=== PATIENT | male | born 1935 | race Caucasian/White ===

== ENCOUNTER 2018-01-28 08:50 | Inpatient (IN) | payer BC, OTHER ==
[2017-12-26 13:30] VITALS: BMI 45.0
--- NOTE | 2017-12-26 14:13 | PAT Medication Instructions ---
Service Date Dec 26, 2017. Current Home Medication List Aspirin (Aspirin), 325 MG PO DAILY PRN for Pain Carvedilol (Coreg), 3.125 MG PO DIRECTED Cyanocobalamin (Vitamin B-12), 1,000 MCG PO QAM Diclofenac Sodium (Actinic Ker (Solaraze) Furosemide (Lasix), 80 MG PO QAM Lidocaine (Lidocaine), 1 PATCH EX DAILY PRN for Pain Naproxen Sodium (Aleve), 2 TAB PO QD PRN for Pain Potassium Ext Rel (Klor-Con), 20 MEQ PO QAM Medication Instructions For Your Scheduled Surgery - Check with surgeon for instructions: Diclofenac Sodium (Actinic Ker (Solaraze) Diclofenac Sodium (Actinic Ker (Solaraze) Naproxen Sodium (Aleve), 2 TAB PO QD PRN for Pain - Check with surgeon and garbage stoker for instructions: Aspirin (Aspirin), 325 MG PO DAILY PRN for Pain - Continue as directed: Carvedilol (Coreg), 3.125 MG PO DIRECTED - Hold the following medications 24 hours prior to surgery: Lidocaine (Lidocaine), 1 PATCH EX DAILY PRN for Pain - Take the following medications the morning of surgery with a sip of water: Cyanocobalamin (Vitamin B-12), 1,000 MCG PO QAM Furosemide (Lasix), 80 MG PO QAM Potassium Ext Rel (Klor-Con), 20 MEQ PO QAM If you have any questions please call us at [phone] or [phone] or [phone]
--- NOTE | 2017-12-26 14:51 | DIAGNOSTIC IMAGING REPORT ---
CHEST 2 VIEWS ROUTINE CLINICAL HISTORY: pat preoperative evaluation COMPARISON STUDY: No previous studies for comparison. FINDINGS: Mild cardiomegaly. External hernia. Lungs are clear. Diaphragms are smooth. IMPRESSION: Mild cardia megaly. Fixed hernia. No acute process The above report was generated using voice recognition software. It may contain grammatical, syntax or spelling errors. Electronically signed by: Archie Anderson M.D. 12/26/2017 2:50 PM Dictated Date/Time: 12/26/2017 2:50 PM
[2017-12-26 15:01] LABS: BASO % 0.4 %; BASO ABS # 0.02 K/uL (0-0.2); EOS % 4.2 %; EOS ABS # 0.21 K/uL (0-0.5); HEMATOCRIT 34.1 % (42-52); HEMOGLOBIN 11.6 g/dL (14.0-18.0); IG# 0.01 K/uL (0.00-0.02); LYMPH % 25.2 %; LYMPH ABS # 1.25 K/uL (1.2-3.4); MEAN CELL VOLUME 87.4 fL (80-100); MEAN CORPUSCULAR HEMOGLOBIN 29.7 pg (25-34); MEAN PLATELET VOLUME 9.1 fL (7.4-10.4); MONO % 5.6 %; MONO ABS # 0.28 K/uL (0.11-0.59); NEUT % 64.4 %; PLATELET COUNT 159 K/uL (130-400); RED CELL DISTRIBUTION WIDTH CV 13.5 % (11.5-14.5); RED CELL DISTRIBUTION WIDTH SD 43.3 fL (36.4-46.3); WHITE BLOOD COUNT 4.97 K/uL (4.8-10.8)
[2017-12-26 15:03] LABS: INR 0.9 (0.9-1.1); PTT PATIENT 25.9 SECONDS (21.0-31.0)
[2017-12-26 15:53] LABS: HEMOGLOBIN A1C 5.7 % (4.5-5.6)
[2017-12-26 16:20] LABS: ALBUMIN 3.2 gm/dl (3.4-5.0); CALCIUM 8.6 mg/dl (8.5-10.1); CREATININE 0.98 mg/dl (0.60-1.40); POTASSIUM 3.4 mmol/L (3.5-5.1)
--- NOTE | 2018-01-02 11:53 | HISTORY & PHYSICAL EXAMINATION ---
DATE OF ADMISSION: 01/21/2018 CHIEF COMPLAINT: Right knee pain. HISTORY OF PRESENT ILLNESS: Mr. Anderson is an 82-year-old male with a multiple year history of right knee pain. The patient rates his pain an 8/10. He has pain with his daily activities. He has limited standing and walking tolerance. Pain is worse with weightbearing. The patient has had injections, bracing, NSAIDs. He currently ambulates with a cane. He has failed conservative treatment and is scheduled for right knee replacement. PAST MEDICAL HISTORY: History of NC, CHF, hypercholesterolemia and obesity, history of DVT 10 years ago. He denies history of diabetes. PAST SURGICAL HISTORY: ORIF right ankle with reconstruction, prostate surgery, right knee arthroscopy and hemorrhoidectomy. SOCIAL HISTORY: The patient denies alcohol or tobacco use. He quit smoking in 1962. He lives in a 3-cici home with his and is retired. FAMILY HISTORY: Negative for DVT. MEDICATIONS: Lasix 10 mg daily, Coreg 1 tablet b.i.d., Klor-Con 4 times daily, and Tylenol 1 tablet p.r.n. ALLERGIES: STATINS. REVIEW OF SYSTEMS: See HPI. Ten other systems reviewed, all negative. PHYSICAL EXAMINATION: VITAL SIGNS: Height 5 feet 6 inches, weight 276 pounds. BMI is 45. GENERAL: This is a well-developed, well-nourished male who is alert and oriented x3. Mood and affect are appropriate. HEENT: Normocephalic, atraumatic. Mucous membranes are moist and intact. NECK: Supple without lymphadenopathy. HEART: Regular rate and rhythm without murmurs, rubs or gallops. LUNGS: Clear to auscultation without wheezes or rhonchi. ABDOMEN: Soft and nontender. Bowel sounds are equal and active. EXTREMITIES: No ecchymosis, redness or warmth. He has varus deformity. Range of motion is from 5-110 degrees. He has moderate effusion. Moderate edema. He is otherwise neurovascularly intact with +5/5 strength. X-RAY EXAMINATION: AP and lateral views show joint space narrowing and osteophyte formation. IMPRESSION: Degenerative joint disease, right knee. PLAN: The patient will be admitted for a right total knee arthroplasty with Dr. Baltazar. We will plan on aspirin for DVT prophylaxis. The patient may need to consider Lovenox versus Xarelto due to his distant history of DVT. We will defer to Dr. Baltazar team. The patient will have [facility] for home physical therapy upon discharge.
[2018-01-28] VITALS (9 sets, daily range): BP systolic 123–159; BP diastolic 54–108; PULSE 48–74; TEMP 36.3–36.4; O2SAT 93–99; Ht 167.6 cm; Wt 126.7 kg
[~2018-01-28] VITALS: Ht 167.6 cm; Wt 126.7 kg
[~2018-01-28 08:50] MED LIST: ACETAMINOPHEN 500 MG TAB PO SCH; ASPI325T45 PO; BUPIVACAINE 0.5 % 5 MG/1 ML PF 10ML VIAL ONE; CARV3.122 PO; CEFAZOLIN 3000MG IV PUSH 22.5 ML IV SCH; CEFAZOLIN SOD 3000MG/22.5 ML IV PUSH IV ONE; CYAN10005 PO; CeleBREX 200 MG CAP PO SCH; DEXAMETHASONE 4 MG TAB PO SCH; DICL3GEL; FAMOTIDINE 20 MG TAB PO SCH; FURO80TA63 PO; GABAPENTIN 300 MG CAP PO SCH; LACTATED RINGER'S 1000ML 1,000 ML IV SCH; LACTATED RINGER'S 1000ML 500 ML IV SCH; LDDP5 EX; METOCLOPRAMIDE HCL 10 MG TAB PO SCH; MIDAZOLAM HCL 1 MG/ML 2ML VIAL ONE; NAPR1CAP12 PO; POTA20TA16 PO; ROPIVACAINE 0.5% 5 MG/ML 30 ML VIAL ONE; ROPIVACAINE 5MG/ML 30 ML 150 MG, BUPIVACAINE 0.5% MPF INJ 30 ML, EpINEphrine HCL INJ 0.... INFIL SCH
[2018-01-28] MEDS ORDERED: FENTANYL CITRATE INJ 50 MCG/1 ML 2 ML VIAL ONE (09:49)
[2018-01-28] MEDS ORDERED: EpHEDrine SULFATE INJ 50 MG/ML AMP IV PRN (10:00)
[2018-01-28] MEDS ORDERED: ATROPINE SULFATE 0.1 MG/ML 5ML SYR IV PRN (10:00)
--- NOTE | 2018-01-28 10:43 | History & Physical Bridge Note ---
H&P Re-Evaluation Bridge Note: I have examined the patient, reviewed the History & Physical and in the interval since the performance of the History & Physical I have noted the following changes of clinical significance: No changes noted
[2018-01-28] MEDS ORDERED: BACITRACIN 50000 UNIT VIAL ONE (11:33)
[2018-01-28] MEDS ORDERED: POVIDONE-IODINE OP SOLN 30 ML BTL ONE (11:33)
[2018-01-28] MEDS ORDERED: ORTHO JOINT ANESTHETIC ONE (11:33)
[2018-01-28] MEDS ORDERED: PROPOFOL IV EMULSION 10 MG/ML 20 ML VIAL IV ONE (12:18)
--- NOTE | 2018-01-28 13:06 | [facility] Post Operative Brief Note ---
Immediate Operative Summary Operative Date Jan 28, 2018. Pre-Operative Diagnosis Degenerative joint disease, right knee Post-Operative Diagnosis Same as preop Procedure(s) Performed Right Total Knee Arthroplasty utilizing [employer] journey to patient match total knee arthroplasty 6 femur 5 tibia 15 Digna [address] Baltazar Branch Sales Manager Surgeon(s) Cooper Israel PA-C Estimated Blood Loss 5 cc Findings Consistent with Post-Op Diagnosis Specimens A: right knee bone and tissue Anesthesia Type MAC Spinal Regional Complication(s) none Disposition Disposition: Recovery Room / PACU
--- NOTE | 2018-01-28 13:07 | [facility] Operative Report ---
Operative Report Operative Date Jan 28, 2018. Pre-Operative Diagnosis Degenerative joint disease, right knee Post-Operative Diagnosis Same as preop Procedure(s) Performed Right Total Knee Arthroplasty utilizing [employer] journey to patient match total knee arthroplasty 6 femur 5 tibia 15 Digna [address] Baltazar Bench Press Operator Surgeon(s) Cooper Israel PA-C Estimated Blood Loss 5 cc Findings Patient presents with severe end-stage chronic or mild degenerative joint disease no response to conservative therapy included physical therapy at that time for his relative rest activity modification injections patient presents with subchondral sclerosis marginal osteophytes varus alignment no response to conservative management Specimens A: right knee bone and tissue Anesthesia Type MAC Spinal Regional Complication(s) none Disposition Recovery Room / PACU Indications Patient presents with a severe end-stage chronic normal degenerative joint disease varus alignment subchondral cystic changes marginal osteophyte sclerosis patient's been no response to conservative therapy presents for a total knee arthroplasty. Description of Procedure After proper prepping and draping of the Right lower extremity anterior midline incision was made over the region of the extensor extensor mechanism after meticulous hemostasis was obtained and maintained in subcutaneous tissues a medial parapatellar incision was made The patella was subluxed lateralward the medial lateral gutter were cleaned from any hypertrophic synovitis and scar tissue of the distal femoral block was placed and the distal femoral osteotomy cut was made subsequently the chamfers anterior and posterior osteotomy cuts were made utilizing the 4-in-1 block the tibia was subsequently subluxed anteriorward medial and ateral meniscal remnants were excised in their entirety remnants of the anterior and posterior cruciate ligaments were excised in their entirety excellent exposure of the proximal tibia was obtained the tibial osteotomy guide was placed on the proximal tibial osteotomy cut was made once again the knee was irrigated with copious amounts of sterile saline solution the patella was subsequently everted lateralward thickened scar tissue around the patella was removed the patella was subsequently cut utilizing a freehand technique and was drilled prepared for final preparation and placement of patella socially flexion-extension gaps were checked and the equal and symmetric trials were placed to the appropriate femoral and tibial trials with poly-spacer being placed for equal flexion and extension gaps and full range of motion including extension to 0 and flexion to 140 the trial components after having been taken to recovery range of motion was subsequently removed meticulous hemostasis was obtained and maintained subsequently a knee block injection of joint cocktail including ropivacaine 0.5% 150 mg. Bupivacaine 0.5 % epinephrine 1-200,030 mL's toradol 30 mg dexamethasone 4 mg ketamine 10 mg clonidine 100 micrograms normal saline solution 30 mg was infiltrated into the soft tissues of the posterior knee medial lateral gutters and periosteal synovium special attention was paid to protect neurovascular structures at all times subsequently trial components having been removed the knee was irrigated with sterile saline solution. debris was removed the proximal tibia was subsequently prepared and was made ready for the placement of the tibial component tibial component was also cemented and tamped into position the femoral component was subsequently placed and cemented in the position the patellar component was subsequently cemented in position because hemostasis once again obtained and maintained wound having been thoroughly irrigated with debridement and debridement lavage was performed as well as a medial parapatellar incision closed with #1 Vicryl in interrupted fashion subcutaneous was closed with #2 Vicryl skin was closed with skin clips. PA-C was necessary for prepping and drapping as well as wound closure of deep fascia Sub cutaneous tissue and skin and was necessary for the case. A sterile compressive dressing was placed patient was taken to recovery in stable condition of report dictated by Giovanny I attest to the content of the Intraoperative Record and any orders documented therein. Any exceptions are noted below. I attest to the content of the Intraoperative Record and any orders documented therein. Any exceptions are noted below.
[2018-01-28] MEDS ORDERED: MoRPHine SULFATE 2 MG/ML CARP IV PRN (14:00)
[2018-01-28] MEDS ORDERED: MAGNESIUM HYDROXIDE SUSP 30 ML UDC PO PRN (14:00)
[2018-01-28] MEDS ORDERED: ALUMINUM/MAGNESIUM/SIMETH (MAALOX MAX) 30 ML UDC PO PRN (14:00)
[2018-01-28] MEDS ORDERED: KETOROLAC TROMETHAMINE 15 MG/ML VIAL IV. PRN (14:00)
[2018-01-28] MEDS ORDERED: TRAMADOL HCL 50 MG TAB PO PRN (14:00)
[2018-01-28] MEDS ORDERED: ZOLPIDEM TARTRATE 5 MG TAB PO PRN (14:00)
[2018-01-28] MEDS ORDERED: ONDANSETRON INJ 2 MG/ML 2 ML VIAL IV PRN (14:00)
[2018-01-28] MEDS ORDERED: BISACODYL 10 MG SUPP PR PRN (14:00)
[2018-01-28] MEDS ORDERED: SOD PHOSPHATE/SOD BIPHOSPHATE ENEMA 132 ML BTL PR PRN (14:00)
--- NOTE | 2018-01-28 14:29 | DIAGNOSTIC IMAGING REPORT ---
R KNEE 1 OR 2 VIEWS ROUTINE HISTORY: 83 years-old Male AP/LATERAL IN PACU RIGHT KNEE status post right knee total joint arthroplasty. Degenerative joint disease. COMPARISON: None available TECHNIQUE: 2 views of the right knee FINDINGS: Postoperative changes from recent right knee total joint arthroplasty and patella resurfacing. Alignment is satisfactory without evidence of complication. Surgical drain is in place along with expected postsurgical soft tissue swelling and deep tissue air. Peripheral vascular disease. IMPRESSION: Right knee total joint arthroplasty and patellar resurfacing without complication identified. The above report was generated using voice recognition software. It may contain grammatical, syntax or spelling errors. Electronically signed by: Nayan Clay M.D. 01/28/2018 2:28 PM Dictated Date/Time: 01/28/2018 2:27 PM
--- NOTE | 2018-01-28 14:40 | Anesthesiology Progress Note ---
Anesthesia Post Op Note Date & Time Jan 28, 2018 at 14:40 Vital Signs Pain Intensity: 0 Vital Signs Past 12 Hours Date Time Temp Pulse Resp B/P (MAP) Pulse Ox O2 Delivery O2 Flow Rate FiO2 01/28/18 14:34 36.2 01/28/18 14:31 112/69 01/28/18 14:29 53 18 97 01/28/18 14:29 54 18 01/28/18 14:27 125/53 01/28/18 14:24 50 14 01/28/18 14:24 51 14 94 01/28/18 14:23 50 16 95 01/28/18 14:23 49 16 01/28/18 14:21 123/64 01/28/18 14:18 44 12 94 01/28/18 14:18 48 12 01/28/18 14:16 111/66 01/28/18 14:13 55 16 93 01/28/18 14:13 52 16 01/28/18 14:12 55 17 95 01/28/18 14:12 56 17 01/28/18 14:11 120/71 01/28/18 14:07 60 12 97 01/28/18 14:07 53 12 01/28/18 14:06 50 16 115/69 94 01/28/18 14:06 55 16 01/28/18 14:01 55 15 109/64 94 01/28/18 14:01 56 15 01/28/18 13:56 55 16 100/61 94 01/28/18 13:56 55 16 01/28/18 13:51 55 21 101/56 95 01/28/18 13:51 58 21 01/28/18 13:49 92/57 01/28/18 13:48 84/43 01/28/18 13:46 36.0 56 13 92/57 96 Nasal Cannula 2 01/28/18 10:47 36.4 63 20 143/54 95 Room Air Notes Mental Status: alert / awake / arousable, participated in evaluation Pt Amnestic to Procedure: Yes Nausea / Vomiting: adequately controlled Pain: adequately controlled Airway Patency, RR, SpO2: stable & adequate BP & HR: stable & adequate Hydration State: stable & adequate Anesthetic Complications: no major complications apparent
[2018-01-28] MEDS: D5W AND 1/2NSS + 20MEQ KCL 1,000 ML IV SCH (16:32)
[2018-01-28] MEDS: OXYCODONE HCL IR 5 MG TAB (IMMEDIATE RELEASE) PO PRN (19:26)
[2018-01-28] MEDS: CEFAZOLIN IV 2,000 MG in SYRINGE 0 ML IV SCH (19:44)
[2018-01-28] MEDS: ACETAMINOPHEN 500 MG TAB PO SCH (19:44)
[2018-01-28] MEDS: DOCUSATE SODIUM 100 MG CAP PO SCH (21:06)
[2018-01-28] MEDS: ASPIRIN 81 MG ECTAB PO SCH (21:06)
[2018-01-28] MEDS: SENNA 8.6 MG TAB PO SCH (21:06)
[2018-01-29] MEDS: OXYCODONE HCL IR 5 MG TAB (IMMEDIATE RELEASE) PO PRN ×3 (00:14→20:01)
[2018-01-29] MEDS: D5W AND 1/2NSS + 20MEQ KCL 1,000 ML IV SCH ×2 (01:19→11:30)
[2018-01-29 03:35] VITALS: BP 126/70; PULSE 66; TEMP 36.6; O2SAT 95
[2018-01-29] MEDS: CEFAZOLIN IV 2,000 MG in SYRINGE 0 ML IV SCH (03:55)
[2018-01-29] MEDS: ACETAMINOPHEN 500 MG TAB PO SCH ×3 (03:55→19:57)
[2018-01-29 07:26] VITALS: BP 139/79; PULSE 75; TEMP 36.3; O2SAT 94
[2018-01-29 07:58] LABS: HEMATOCRIT 27.5 % (42-52); HEMOGLOBIN 9.2 g/dL (14.0-18.0); MEAN CORPUSCULAR HEMOGLOBIN 29.1 pg (25-34); MEAN CORPUSCULAR HGB CONC 33.5 g/dl (32-36); MEAN PLATELET VOLUME 9.2 fL (7.4-10.4); PLATELET COUNT 175 K/uL (130-400); RED CELL DISTRIBUTION WIDTH CV 13.4 % (11.5-14.5); RED CELL DISTRIBUTION WIDTH SD 43.2 fL (36.4-46.3); WHITE BLOOD COUNT 10.85 K/uL (4.8-10.8)
--- NOTE | 2018-01-29 08:14 | Orthopedic Progress Note ---
Orthopedic Progress Note Date of Service Jan 29, 2018. Subjective Post OP Day: 1 Reports: feeling well, Denies: chest pain, SOB, light headedness, calf pain Objective calves soft nontender, N/V intact, capillary refill less than 2 sec., dressing C /D/I, A&O x3, toes mobile, hemovac drainage (90/100cc per shift) Date Time Temp Pulse Resp B/P (MAP) Pulse Ox O2 Delivery O2 Flow Rate FiO2 01/29/18 07:26 36.3 75 18 139/79 (99) 94 Room Air 01/29/18 03:35 36.6 66 18 126/70 (88) 95 Room Air 01/29/18 00:15 Room Air 01/28/18 22:50 36.4 74 16 132/75 (94) 93 Room Air 01/28/18 18:09 36.3 71 16 137/81 (99) 99 Nasal Cannula 2.0 01/28/18 17:06 36.4 52 16 159/108 (125) 98 Nasal Cannula 2.0 01/28/18 16:01 36.3 48 18 136/81 (99) 98 Nasal Cannula 2.0 01/28/18 15:40 Nasal Cannula 2.0 01/28/18 15:25 36.3 55 18 156/76 (102) 96 Nasal Cannula 2.0 01/28/18 14:58 97 Nasal Cannula 2.0 01/28/18 14:55 97 Nasal Cannula 2.0 01/28/18 14:53 36.4 51 18 123/76 (92) 95 Nasal Cannula 2.0 01/28/18 14:42 46 18 01/28/18 14:42 47 18 95 01/28/18 14:41 125/66 01/28/18 14:37 49 16 124/71 96 01/28/18 14:37 46 16 01/28/18 14:34 36.2 01/28/18 14:32 52 16 96 01/28/18 14:32 48 16 01/28/18 14:31 112/69 01/28/18 14:29 53 18 97 01/28/18 14:29 54 18 01/28/18 14:27 125/53 01/28/18 14:24 50 14 01/28/18 14:24 51 14 94 01/28/18 14:23 50 16 95 01/28/18 14:23 49 16 01/28/18 14:21 123/64 01/28/18 14:18 44 12 94 01/28/18 14:18 48 12 01/28/18 14:16 111/66 01/28/18 14:13 55 16 93 01/28/18 14:13 52 16 01/28/18 14:12 55 17 95 01/28/18 14:12 56 17 01/28/18 14:11 120/71 01/28/18 14:07 60 12 97 01/28/18 14:07 53 12 01/28/18 14:06 50 16 115/69 94 01/28/18 14:06 55 16 01/28/18 14:01 55 15 109/64 94 01/28/18 14:01 56 15 01/28/18 13:56 55 16 100/61 94 01/28/18 13:56 55 16 01/28/18 13:51 55 21 101/56 95 01/28/18 13:51 58 21 01/28/18 13:49 92/57 01/28/18 13:48 84/43 01/28/18 13:46 36.0 56 13 92/57 96 Nasal Cannula 2 01/28/18 10:47 36.4 63 20 143/54 95 Room Air Laboratory Results 24 Hours: Test 01/29/18 07:17 Hematocrit 27.5 % Hemoglobin 9.2 g/dL Prothromb Time International Ratio 1.0 Prothrombin Time 10.7 SECONDS Assessment & Plan Assessment: POD#1 SP RIGHT TKA Plan: PT/OT DVT PROPH- ASA 81MG BID PAIN MANAGEMENT- JAIDA, CELEBREX, TYLENOL DC PLANNING- DC SATURDAY WITH [facility]. DC DRESSING/DRAIN IN AM.
--- NOTE | 2018-01-29 08:15 | Discharge Instructions ---
Discharge Instructions Date of Service Jan 29, 2018. Admission Reason for Admission: Right Knee Osteoarthritis Discharge Discharge Diagnosis / Problem: SP RIGHT TKA Discharge Goals Goal(s): Decrease discomfort, Improve function, Increase independence Activity Recommendations Activity Limitations: per Instructions/Follow-up section . Instructions / Follow-Up Instructions / Follow-Up ACTIVITY RECOMMENDATIONS: SELF CARE INSTRUCTIONS AFTER TOTAL KNEE REPLACEMENT A. You may need to continue a physical therapy program after discharge from the hospital. There are several options available to you. Your doctor will assist you in selecting the best one for you. 1. An out-patient facility 2 to 3 times a week for therapy or home therapy. 2. Continue working on all exercises taught to you in the hospital. Your goals should be to increase bending of your knee to 90 degrees and beyond and to fully straighten your knee. B. You may progress at your own pace from walking with a walker or crutches to a cane; then to no assistive devices. C. Make walking a part of your daily routine. Be up as much as comfortable with rest periods throughout the day. Rest with leg elevation is very important. Use the ice wrap frequently for the first 3-4 weeks. D. There are no restrictions on activities. You may ride in a car, shop, participate in county commissioner and all social activities. E. Wear the long elastic stockings (MARION hose) 20 hours a day for 2 weeks after surgery. They can be removed several times a day for laundering and for a bath. F. You may shower, no tub baths until cleared by your doctor. SPECIAL CARE INSTRUCTIONS: VERY IMPORTANT TO READ AND REVIEW A. There are a few signs you need to watch for after you are home. Call [facility] if you notice any of the followin. Increased severe knee pain. Some pain is expected especially when you exercise. 2. Increased swelling in your leg or knee; pain or swelling of the calf muscle in either lower leg. 3. Any fluid drainage from the incision. 4. Shortness of breath or chest pain. B. Please call [facility] at if you have any concerns or questions about your operation or recovery. The doctor or his nurse will return your call promptly. C. You must take antibiotics before dental work, bladder, bowel or other surgery. Your doctor will provide you with a permanent care to carry describing this precaution. IMPORTANT: * REMEMBER TO TAKE ASPIRIN, 81 MG, TWICE DAILY FOR 4 WEEKS UNLESS OTHERWISE DIRECTED. THIS IS YOUR BLOOD THINNER. * HIGH RISK PATIENTS MAY BE PRESCRIBED A STRONGER BLOOD THINNER. THIS WILL BE PROVIDED AT DISCHARGE. * CALL IF INCREASED PAIN, REDNESS, DRAINAGE OR FEVER GREATER THAT 101. * WEAR MARION HOSE 20 HOURS PER DAY FOR 2 WEEKS. DERMABOND Prineo- This is a mesh tape dressing that is covered with glue. It should remain in place until the incision is properly healed, usually 10-14 days. This dressing is designed to naturally slough off. You may trim the excess mesh tape as it peels off. Incision may be briefly wet in a shower. Dry immediately by blotting with a clean, dry towel. Do not bath or swim until instructed by your doctor. Do not scratch, rub, or pick at the dressing. Do not apply any topical ointments or lotions until dressing is completely removed and/or instructed by your doctor. There may be a small piece of suture material at one end of your incision. Do not pull or trim this. If it is bothersome or catching on clothing, you may cover it with a band-aid. FOLLOW UP VISIT: If appointment is not already scheduled: Please call [facility] to make a follow-up appointment for 2 weeks after your surgery at . Current Hospital Diet Patient's current hospital diet: Regular Diet Discharge Diet Recommended Diet: Regular Diet Procedures Procedures Performed: Right Total Knee Arthroplasty utilizing [employer] journey to patient match total knee arthroplasty 6 femur 5 tibia 15 Digna 35 oval patella Pending Studies Studies pending at discharge: no Laboratory Results Hemoglobin A1c Test 12/26/17 14:17 Range/Units Estimated Average Glucose 117 mg/dl Hemoglobin A1c 5.7 H 4.5-5.6 % Medical Emergencies . Who to Call and When: Medical Emergencies: If at any time you feel your situation is an emergency, please call 911 immediately. . Non-Emergent Contact Non-Emergency issues call your: Surgeon . "Provider Documentation" section prepared by Emerald Hunt. . [place] Drug Monitoring Program Search Results: patient reviewed within database, no issues identified
[2018-01-29 08:31] LABS: CALCIUM 7.8 mg/dl (8.5-10.1); CREATININE 1.05 mg/dl (0.60-1.40); POTASSIUM 3.8 mmol/L (3.5-5.1)
[2018-01-29] MEDS: CYANOCOBALAMIN 500 MCG TAB (VIT B-12) PO SCH (09:03)
[2018-01-29] MEDS: PANTOprazole SOD 40 MG TAB PO SCH (09:04)
[2018-01-29] MEDS: ASPIRIN 81 MG ECTAB PO SCH ×2 (09:04→20:55)
[2018-01-29] MEDS: CARVEDILOL 3.125 MG TAB PO SCH (09:04)
[2018-01-29] MEDS: POTASSIUM CHLORIDE 20 MEQ TABCR PO SCH (09:04)
[2018-01-29] MEDS: DOCUSATE SODIUM 100 MG CAP PO SCH ×2 (09:04→20:55)
[2018-01-29] MEDS: MULTIVITAMIN TAB PO SCH (09:05)
[2018-01-29] MEDS ORDERED: NURSING VERBAL MED ORDER ONE (10:45)
--- NOTE | 2018-01-29 10:53 | Anesthesiology Progress Note ---
Anesthesia Post Op Note Date & Time Jan 29, 2018 at 10:53 Vital Signs Pain Intensity: 5.0 Vital Signs Past 12 Hours Date Time Temp Pulse Resp B/P (MAP) Pulse Ox O2 Delivery O2 Flow Rate FiO2 01/29/18 07:50 Room Air 01/29/18 07:26 36.3 75 18 139/79 (99) 94 Room Air 01/29/18 03:35 36.6 66 18 126/70 (88) 95 Room Air 01/29/18 00:15 Room Air Notes Mental Status: alert / awake / arousable, participated in evaluation Pt Amnestic to Procedure: Yes Nausea / Vomiting: adequately controlled Pain: adequately controlled Airway Patency, RR, SpO2: stable & adequate BP & HR: stable & adequate Hydration State: stable & adequate Neuraxial Anesthesia: was administered, sensory block resolved Anesthetic Complications: no major complications apparent
[2018-01-29] MEDS: FUROSEMIDE 80 MG TAB PO SCH (11:39)
[2018-01-29 12:30] VITALS: BP 126/75; PULSE 60; TEMP 36.8; O2SAT 95
[2018-01-29] MEDS ORDERED: ACET-24 PO (13:42)
[2018-01-29] MEDS ORDERED: CLC100 PO (13:42)
[2018-01-29] MEDS ORDERED: CLB200 PO (13:42)
[2018-01-29] MEDS ORDERED: ASPEC81 PO (13:42)
[2018-01-29] MEDS ORDERED: RXC5 PO (13:42)
[2018-01-29] MEDS ORDERED: ONDA-170 PO (13:42)
[2018-01-29 15:17] VITALS: BP 128/54; PULSE 73; TEMP 36.8; O2SAT 94
[2018-01-29] MEDS: CeleBREX 200 MG CAP PO SCH (20:56)
[2018-01-29] MEDS: SENNA 8.6 MG TAB PO SCH (20:56)
[2018-01-29 22:58] VITALS: BP 125/73; PULSE 77; TEMP 36.8; O2SAT 95
[2018-01-30] MEDS: OXYCODONE HCL IR 5 MG TAB (IMMEDIATE RELEASE) PO PRN ×2 (00:05→07:14)
[2018-01-30] MEDS: ACETAMINOPHEN 500 MG TAB PO SCH (04:24)
[2018-01-30 06:15] VITALS: BP 125/64; PULSE 76; TEMP 36.8; O2SAT 96
--- NOTE | 2018-01-30 07:16 | Orthopedic Progress Note ---
Orthopedic Progress Note Date of Service Jan 30, 2018. Subjective Post OP Day: 2 Reports: feeling well, pain controlled w PO medications, Denies: complaints, chest pain, SOB, nausea / vomiting, light headedness, calf pain Objective calves soft nontender, N/V intact, capillary refill less than 2 sec., dressing C /D/I, A&O x3, toes mobile Date Time Temp Pulse Resp B/P (MAP) Pulse Ox O2 Delivery O2 Flow Rate FiO2 01/30/18 06:15 36.8 76 20 125/64 (84) 96 Room Air 01/29/18 23:52 Room Air 01/29/18 22:58 36.8 77 16 125/73 (90) 95 Room Air 01/29/18 16:45 Room Air 01/29/18 15:17 36.8 73 18 128/54 (78) 94 Room Air 01/29/18 12:30 36.8 60 18 126/75 (92) 95 Room Air 01/29/18 07:50 Room Air 01/29/18 07:26 36.3 75 18 139/79 (99) 94 Room Air Laboratory Results 24 Hours: Test 01/29/18 07:17 Hematocrit 27.5 % Hemoglobin 9.2 g/dL Prothromb Time International Ratio 1.0 Prothrombin Time 10.7 SECONDS Assessment & Plan Assessment: POD#2 SP RIGHT TKA Plan: PT/OT DVT PROPH- ASA 81MG BID PAIN MANAGEMENT- JAIDA, CELEBREX, TYLENOL DC PLANNING- DC TODAY WITH [facility]. Discharge Planning Discharge Planning: home with home health DVT Prophylaxis: TEDs, SCDs, ASA
[2018-01-30] MEDS: MULTIVITAMIN TAB PO SCH (07:54)
[2018-01-30] MEDS: PANTOprazole SOD 40 MG TAB PO SCH (07:54)
[2018-01-30] MEDS: CYANOCOBALAMIN 500 MCG TAB (VIT B-12) PO SCH (07:55)
[2018-01-30] MEDS: POTASSIUM CHLORIDE 20 MEQ TABCR PO SCH (07:55)
[2018-01-30] MEDS: FUROSEMIDE 80 MG TAB PO SCH (07:55)
[2018-01-30] MEDS: CARVEDILOL 3.125 MG TAB PO SCH (07:55)
[2018-01-30] MEDS: DOCUSATE SODIUM 100 MG CAP PO SCH (08:29)
[2018-01-30] MEDS: ASPIRIN 81 MG ECTAB PO SCH (08:29)
[2018-01-30] MEDS: CeleBREX 200 MG CAP PO SCH (08:30)
[2018-01-30 08:58] VITALS: BP 125/64; PULSE 76; TEMP 36.8; O2SAT 96
--- NOTE | 2018-01-30 09:44 | Discharge Summary ---
Orthopedic Discharge Summary Admission Date/Reason Jan 28, 2018 at 10:45 Right Knee Osteoarthritis. Discharge Date/Disposition Jan 30, 2018 Home with services Diagnosis Principal Diagnosis: right knee osteoarthritis Procedure(s) Performed Right Total Knee Arthroplasty utilizing [facility] journey to patient match total knee arthroplasty 6 femur 5 tibia 15 Digna 35 oval patella Consultations NONE Medication Reconciliation New Medications: Ondansetron Hcl (Zofran) 8 Mg Tab 8 MG PO Q8 PRN for Nausea, #20 TAB Acetaminophen (Sb Non-Aspirin Extra Stre) 500 Mg Tab 1000 MG PO Q8H, #63 TAB Aspirin (Aspirin EC Low Dose) 81 Mg Ectab 81 MG PO BID for 30 Days, #60 TAB Celecoxib (Celebrex) 200 Mg Cap 200 MG PO BID for 30 Days, #60 CAP Docusate Sodium (Docusate Sodium) 100 Mg Cap 100 MG PO BID for 10 Days, #20 CAP Oxycodone HCl (Oxycodone HCl) 5 Mg Tab 5-10 MG PO Q4H PRN for Pain, #60 TAB Continued Medications: Carvedilol (Coreg) 3.125 Mg Tab 3.125 MG PO DIRECTED, TAB patient only takes aas needed. states it lowers his bp too much. patient doctor aware and in agreement Cyanocobalamin (Vitamin B-12) 1,000 Mcg Tab 1000 MCG PO QAM, TAB Furosemide (Lasix) 80 Mg Tab 80 MG PO QAM, TAB Lidocaine (Lidocaine) 1 Patch Tdsy 1 PATCH EX DAILY PRN for Pain Potassium Ext Rel (Klor-Con) 20 Meq Tabcr 20 MEQ PO QAM, TAB Discontinued Medications: Aspirin (Aspirin) 325 Mg Tab 325 MG PO DAILY PRN for Pain Diclofenac Sodium (Actinic Ker (Solaraze) 3 % Gel Naproxen Sodium (Aleve) 220 Mg Cap 2 TAB PO QD PRN for Pain Admission Physical Exam As per Admitting History & Physical. Hospital Course Patient was a same day admission after undergoing a successful right TKA. He tolerated the procedure well. Post-operatively, his activity was progressed and well tolerated. Please refer to daily progress notes and PT notes for complete details. After exam on 01/30/18, patient felt to be stable for discharge home with HHPT. Patient will f/u in the office in 2 weeks for further evaluation including x-rays and incision check, sooner if having any issues or concerns. Below are pertinent labs/studies during their hospital stay: Last Vital Signs Documentation Date Time Temp Pulse Resp B/P (MAP) Pulse Ox O2 Delivery O2 Flow Rate FiO2 01/30/18 08:58 36.8 76 20 96 Room Air 01/30/18 06:15 125/64 (84) 01/28/18 18:09 2.0 Last Resulted CBC 01/29/18 07:17 Last Resulted BMP 01/29/18 07:17 Discharge Instructions ACTIVITY RECOMMENDATIONS: SELF CARE INSTRUCTIONS AFTER TOTAL KNEE REPLACEMENT A. You may need to continue a physical therapy program after discharge from the hospital. There are several options available to you. Your doctor will assist you in selecting the best one for you. 1. An out-patient facility 2 to 3 times a week for therapy or home therapy. 2. Continue working on all exercises taught to you in the hospital. Your goals should be to increase bending of your knee to 90 degrees and beyond and to fully straighten your knee. B. You may progress at your own pace from walking with a walker or crutches to a cane; then to no assistive devices. C. Make walking a part of your daily routine. Be up as much as comfortable with rest periods throughout the day. Rest with leg elevation is very important. Use the ice wrap frequently for the first 3-4 weeks. D. There are no restrictions on activities. You may ride in a car, shop, participate in analytical manager and all social activities. E. Wear the long elastic stockings (MARION hose) 20 hours a day for 2 weeks after surgery. They can be removed several times a day for laundering and for a bath. F. You may shower, no tub baths until cleared by your doctor. SPECIAL CARE INSTRUCTIONS: VERY IMPORTANT TO READ AND REVIEW A. There are a few signs you need to watch for after you are home. Call [facility] if you notice any of the followin. Increased severe knee pain. Some pain is expected especially when you exercise. 2. Increased swelling in your leg or knee; pain or swelling of the calf muscle in either lower leg. 3. Any fluid drainage from the incision. 4. Shortness of breath or chest pain. B. Please call [facility] at if you have any concerns or questions about your operation or recovery. The doctor or his nurse will return your call promptly. C. You must take antibiotics before dental work, bladder, bowel or other surgery. Your doctor will provide you with a permanent care to carry describing this precaution. IMPORTANT: * REMEMBER TO TAKE ASPIRIN, 81 MG, TWICE DAILY FOR 4 WEEKS UNLESS OTHERWISE DIRECTED. THIS IS YOUR BLOOD THINNER. * HIGH RISK PATIENTS MAY BE PRESCRIBED A STRONGER BLOOD THINNER. THIS WILL BE PROVIDED AT DISCHARGE. * CALL IF INCREASED PAIN, REDNESS, DRAINAGE OR FEVER GREATER THAT 101. * WEAR MARION HOSE 20 HOURS PER DAY FOR 2 WEEKS. * DERMABOND Prineo- This is a mesh tape dressing that is covered with glue. It should remain in place until the incision is properly healed, usually 10-14 days. This dressing is designed to naturally slough off. You may trim the excess mesh tape as it peels off. Incision may be briefly wet in a shower. Dry immediately by blotting with a clean, dry towel. Do not bath or swim until instructed by your doctor. Do not scratch, rub, or pick at the dressing. Do not apply any topical ointments or lotions until dressing is completely removed and/or instructed by your doctor. There may be a small piece of suture material at one end of your incision. Do not pull or trim this. If it is bothersome or catching on clothing, you may cover it with a band-aid. FOLLOW UP VISIT: If appointment is not already scheduled: Please call [facility] to make a follow-up appointment for 2 weeks after your surgery at .
== END 2018-01-30 10:20 | disposition home health service (06) | DRG 470 ==
LOC: C.ACU 08:50 → C.3E 10:45 → ENRESERV 14:33
PROVIDERS: ADMIT Orthopaedic Surgery; ATTEND Orthopaedic Surgery
PROC: 0SRC0J9 Replacement of Right Knee Joint with Synthetic Substitute, Cemented, Open Approach (ICD-10-PCS; principal; 2018-01-28 12:15)
DX: M17.11 Unilateral primary osteoarthritis, right knee (principal); Z68.42 Body mass index [BMI] 45.0-49.9, adult; M25.461 Effusion, right knee; M21.161 Varus deformity, not elsewhere classified, right knee; I25.10 Atherosclerotic heart disease of native coronary artery without angina pectoris; I50.9 Heart failure, unspecified; N40.0 Benign prostatic hyperplasia without lower urinary tract symptoms; G47.33 Obstructive sleep apnea (adult) (pediatric); E66.01 Morbid (severe) obesity due to excess calories; I25.2 Old myocardial infarction; Z87.891 Personal history of nicotine dependence; Z86.718 Personal history of other venous thrombosis and embolism; Z79.1 Long term (current) use of non-steroidal anti-inflammatories (NSAID); Z79.82 Long term (current) use of aspirin; Z79.899 Other long term (current) drug therapy; Z88.8 Allergy status to other drugs, medicaments and biological substances

== ENCOUNTER → 2018-02-17 | Outpatient (CLI) | payer BC ==
[~2018-02-17] MED LIST changes: +ACET-24 PO; -ACETAMINOPHEN 500 MG TAB PO SCH; +ASPEC81 PO; -ASPI325T45 PO; -BUPIVACAINE 0.5 % 5 MG/1 ML PF 10ML VIAL ONE; -CEFAZOLIN 3000MG IV PUSH 22.5 ML IV SCH; -CEFAZOLIN SOD 3000MG/22.5 ML IV PUSH IV ONE; +CLB200 PO; +CLC100 PO; -CeleBREX 200 MG CAP PO SCH; -DEXAMETHASONE 4 MG TAB PO SCH; -DICL3GEL; -FAMOTIDINE 20 MG TAB PO SCH; -GABAPENTIN 300 MG CAP PO SCH; -LACTATED RINGER'S 1000ML 1,000 ML IV SCH; -LACTATED RINGER'S 1000ML 500 ML IV SCH; -METOCLOPRAMIDE HCL 10 MG TAB PO SCH; -MIDAZOLAM HCL 1 MG/ML 2ML VIAL ONE; -NAPR1CAP12 PO; +ONDA-170 PO; -ROPIVACAINE 0.5% 5 MG/ML 30 ML VIAL ONE; -ROPIVACAINE 5MG/ML 30 ML 150 MG, BUPIVACAINE 0.5% MPF INJ 30 ML, EpINEphrine HCL INJ 0.... INFIL SCH; +RXC5 PO
--- NOTE | 2018-02-17 12:55 | DIAGNOSTIC IMAGING REPORT ---
RIGHT LOWER EXTREMITY VENOUS DOPPLER HISTORY: RIGHT CALF PAIN COMPARISON STUDY: None. FINDINGS: There is normal compressibility, flow, and augmentation within the right lower extremity deep venous system. Of note, the right calf vessels were suboptimally evaluated due to the subcutaneous edema. There is a 4.5 x 3.2 x 1.1 cm popliteal cyst. IMPRESSION: No DVT within the right lower extremity. Electronically signed by: Medardo Fall M.D. 02/17/2018 12:54 PM Dictated Date/Time: 02/17/2018 12:53 PM
== END | disposition home or self-care (01) ==
LOC: C.ULTRBC 12:03
PROVIDERS: ATTEND Physician Assistant
DX: M79.661 Pain in right lower leg (principal)